=== PATIENT | male | born 2000 | race Two or more races ===

== ENCOUNTER 2024-06-21 08:27 | Emergency (ER) | payer BC, MEDICAID ==
[~2024-06-21] VITALS: Ht 175.3 cm; Wt 97.9 kg
[2024-06-21 09:30] VITALS: BP 133/83; PULSE 76; RESP 18; O2SAT 96
[2024-06-21] MEDS ORDERED: DOXY1CAP58 PO (10:55)
[2024-06-21] MEDS ORDERED: NAPR-746 PO (10:55)
== END 2024-06-21 11:06 | disposition home or self-care (01) ==
LOC: ER 08:27
DX: N45.1 Epididymitis (principal); N50.3 Cyst of epididymis
CPT/HCPCS: 76870